=== PATIENT | male | born 2005 | race Caucasian/White ===

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

== ENCOUNTER 2024-02-26 21:54 | Emergency (ER) | payer OTHER ==
[~2024-02-26] VITALS: Ht 170.1 cm; Wt 91.2 kg
[~2024-02-26 21:54] MED LIST changes: +MIXED AMPHETAMI30 MG PO; +ZITHROMAX250 MG PO
[2024-02-26] MEDS ORDERED: AMOXICILLIN875 MG PO (22:05)
[2024-02-26 22:40] LABS: HEMATOCRIT 41.9 % (42.0-52.0); MEAN CELL VOLUME 82.5 fl (80.0-94.0); MEAN CORPUSCULAR HGB 28.9 pg (27.0-31.0); MEAN CORPUSCULAR HGB CONC 35.1 g/dl (33.0-37.0); MEAN PLATELET VOLUME 9.5 fl (9.6-12.3); PLATELET COUNT AUTOMATED 161 10*3/uL (130-400); RED BLOOD COUNT 5.08 10*6/uL (4.50-5.90); WHITE BLOOD COUNT 8.1 10*3/uL (4.8-10.8)
[2024-02-26 22:43] LABS: MANUAL DIFF REFLEX YES
[2024-02-26 22:59] LABS: CHLORIDE 102 mmol/L (98-107); POTASSIUM 4.3 mmol/L (3.4-5.1)
[2024-02-26 23:00] LABS: BUN < 5 mg/dl (9-23)
[2024-02-26] MEDS ORDERED: methylPREDNISolone sod succ 125 MG VIAL IM ONE ×2 (23:00→23:45)
[2024-02-26 23:09] LABS: ATYPICAL LYMPHS 6 % (0-0); PLATELET SUFFICIENCY NORMAL (NORMAL); TOTAL CELLS COUNTED 100 #CELLS
== END 2024-02-27 00:19 | disposition home or self-care (01) ==
LOC: ED 21:54
PROVIDERS: Internal Medicine
DX: B27.90 Infectious mononucleosis, unspecified without complication (principal); Z79.2 Long term (current) use of antibiotics